=== PATIENT | female | born 1955 | race Caucasian/White ===

== ENCOUNTER 2023-04-05 18:59 | Emergency (ER) | payer OTHER ==
[~2023-04-05] VITALS: Ht 165.1 cm; Wt 66.2 kg
[2023-04-05 19:27] VITALS: BP 146/96; PULSE 82; RESP 20; TEMP 97.4; O2SAT 97
[2023-04-05] MEDS ORDERED: KETOROLAC 60 MG/2 ML VIAL IM ONE (21:25)
[2023-04-05] MEDS ORDERED: CYCL-711 PO (23:21)
[2023-04-05] MEDS ORDERED: NAPR-54 PO (23:21)
[2023-04-05 23:37] VITALS: BP 146/96; PULSE 82; RESP 20; TEMP 97.4; O2SAT 97
== END 2023-04-05 23:37 | disposition home or self-care (01) ==
LOC: MED 18:59
DX: S16.1XXA Strain of muscle, fascia and tendon at neck level, initial encounter (principal); V49.88XA Car occupant (driver) (passenger) injured in other specified transport accidents, initial encounter; Y93.89 Activity, other specified; Y92.89 Other specified places as the place of occurrence of the external cause; Y99.8 Other external cause status
CPT/HCPCS: 72040; 72100; 96372; 99284; J1885